=== PATIENT | female | born 1930 | race Caucasian/White ===

== ENCOUNTER 2016-10-14 13:23 | Emergency (ER) | payer OTHER ==
[2016-10-14] MEDS: SODIUM CHLORIDE 0.9% 1000ML 500 ML IV SCH ×2 (13:54→14:16)
[2016-10-14] MEDS: SODIUM CHLORIDE 0.9% FLUSH 10 ML SOL IV PRN ×2 (13:54→15:05)
[2016-10-14 13:55] LABS: BASOPHILS % (AUTO) 0 % (0-3); EOSINOPHILS % (AUTO) 0 % (0-9); HEMATOCRIT 32 % (35-47); MEAN CORPUSCULAR HGB CONC 32.9 gm/dl (32.0-36.0); MEAN CORPUSCULAR VOLUME 84 fL (81-99); MONOCYTES % (AUTO) 10.2 % (0-12); NEUTROPHILS % (AUTO) 78.3 % (37-80)
[2016-10-14 14:10] LABS: CALCIUM 9.5 mg/dl (8.5-10.1); POTASSIUM 4.3 mMol/L (3.5-5.1)
[2016-10-14 14:59] VITALS: RESP 18; TEMP 96.8
[2016-10-14] MEDS ORDERED: CEFTRIAXONE 1 GM (PREMIX) 1 GM/50 ML SOL IV ONE ×2 (15:01→15:03)
[2016-10-14] MEDS ORDERED: ONDANSETRON HCL 4 MG/2 ML SOL IV ONE (15:01)
[2016-10-14] MEDS ORDERED: ONDANSETRON HCL 4 MG/2 ML SOL ONE (15:03)
[2016-10-14 15:15] VITALS: BP 135/65; PULSE 71; O2SAT 97
== END 2016-10-14 16:05 | DRG 690 ==
LOC: ED 13:23
DX: N30.00 Acute cystitis without hematuria (principal); R55 Syncope and collapse; R41.0 Disorientation, unspecified; N28.9 Disorder of kidney and ureter, unspecified
CPT/HCPCS: 80048; 85025; 99285; J0696; J2405

== ENCOUNTER 2016-10-28 11:47 | Emergency (ER) | payer OTHER ==
[2016-10-28] MEDS ORDERED: ALBUTEROL/IPRATROPIUM 1 VIAL SOL INH ONE (12:03)
[2016-10-28 12:10] VITALS: RESP 20
[2016-10-28] MEDS ORDERED: ALBUTEROL/IPRATROPIUM 1 VIAL SOL ONE (12:11)
[2016-10-28 14:17] VITALS: BP 110/54; PULSE 86; TEMP 98.2; O2SAT 98
== END 2016-10-28 14:30 | disposition home or self-care (01) | DRG 153 ==
LOC: ED 11:47
DX: J06.9 Acute upper respiratory infection, unspecified (principal)
CPT/HCPCS: 71010; 99282; 99283; J7620